=== PATIENT | male | born 2000 | race Hispanic/Latino ===

== ENCOUNTER 2022-03-12 22:24 | Emergency (ER) | payer SELFPAY ==
[2022-03-13] MEDS ORDERED: NA CHLORIDE 0.9% 1,000 ML ONE (00:04)
[2022-03-13 00:07] LABS: Absolute Lymphocytes (CBC) 4.3 K/uL (0.7-4.9); Hematocrit 38.4 % (39.6-49.0); Lymphocytes % 30.6 % (15.3-44.8); MCV 88.2 fL (80-100); MPV 10.2 fL (7.6-11.3); RBC Red Blood Cell Count 4.35 M/uL (4.33-5.43)
[2022-03-13 00:11] LABS: Protime INR 0.98
--- NOTE | 2022-03-13 00:24 | EDPHYS ---
Physician Documentation [facility] Name: Abdullahi Giron Age: 21 yrs Sex: Male : 2000 Arrival Date: 03/12/2022 Time: 22:28 Bed 18 Private MD: ED Physician Sergey Jasso HPI: 03/13 00:09 This 21 yrs old Male presents to ER via EMS with complaints of Suicidal yecenia Ideation. 00:09 The patient presents to the emergency department with depression, psychosis, suicide yecenia ideation, but the patient has no formulated plan. Onset: The symptoms/episode began/occurred 3 day(s) ago. Past psychiatric history: Prior diagnosis: bipolar disorder, depression. Associated signs and symptoms: Pertinent positives; paranoia, suicide ideation. Severity of symptoms: At their worst the symptoms were mild in the emergency department the symptoms are unchanged. The patient has experienced similar episodes in the past, multiple times. Historical: - Allergies: 03/12 22:41 No Known Allergies; ke1 - PMHx: 22:41 None; ke1 - PSHx: 22:41 None; ke1 - Immunization history:: Client reports having NOT received the Covid vaccine. - Social history:: Smoking status: Patient reports the use of cigarette tobacco products, smokes one pack cigarettes per day. ROS: 03/13 00:15 Constitutional: Negative for fever, chills, and weight loss, Eyes: Negative for injury, yecenia pain, redness, and discharge, ENT: Negative for injury, pain, and discharge, Neck: Negative for injury, pain, and swelling, Cardiovascular: Negative for chest pain, palpitations, and edema, Respiratory: Negative for shortness of breath, cough, wheezing, and pleuritic chest pain, Abdomen/GI: Negative for abdominal pain, nausea, vomiting, diarrhea, and constipation, Back: Negative for injury and pain, : Negative for injury, bleeding, discharge, and swelling, MS/Extremity: Negative for injury and deformity, Skin: Negative for injury, rash, and discoloration, Allergy/Immunology: Negative for hives, rash, and allergies, Endocrine: Negative for neck swelling, polydipsia, polyuria, polyphagia, and marked weight changes, Hematologic/Lymphatic: Negative for swollen nodes, abnormal bleeding, and unusual bruising. Psych: Positive for depression, auditory hallucinations, suicidal ideation. Exam: 00:15 Constitutional: This is a well developed, well nourished patient who is awake, alert, yecenia and in no acute distress. Head/Face: Normocephalic, atraumatic. Eyes: Pupils equal round and reactive to light, extra-ocular motions intact. Lids and lashes normal. Conjunctiva and sclera are non-icteric and not injected. Cornea within normal limits. Periorbital areas with no swelling, redness, or edema. ENT: Nares patent. No nasal discharge, no septal abnormalities noted. Tympanic membranes are normal and external auditory canals are clear. Oropharynx with no redness, swelling, or masses, exudates, or evidence of obstruction, uvula midline. Mucous membranes moist. Neck: Trachea midline, no thyromegaly or masses palpated, and no cervical lymphadenopathy. Supple, full range of motion without nuchal rigidity, or vertebral point tenderness. No Meningismus. Chest/axilla: Normal chest wall appearance and motion. Nontender with no deformity. No lesions are appreciated. Cardiovascular: Regular rate and rhythm with a normal S1 and S2. No gallops, murmurs, or rubs. Normal PMI, no JVD. No pulse deficits. Respiratory: Lungs have equal breath sounds bilaterally, clear to auscultation and percussion. No rales, rhonchi or wheezes noted. No increased work of breathing, no retractions or nasal flaring. Abdomen/GI: Soft, non-tender, with normal bowel sounds. No distension or tympany. No guarding or rebound. No evidence of tenderness throughout. Back: No spinal tenderness. No costovertebral tenderness. Full range of motion. Male : Normal genitalia with no discharge or lesions. Skin: Warm, dry with normal turgor. Normal color with no rashes, no lesions, and no evidence of cellulitis. MS/ Extremity: Pulses equal, no cyanosis. Neurovascular intact. Full, normal range of motion. Neuro: Awake and alert, GCS 15, oriented to person, place, time, and situation. Cranial nerves II-XII grossly intact. Motor strength 5/5 in all extremities. Sensory grossly intact. Cerebellar exam normal. Normal gait. Psych: Awake, alert, with orientation to person, place and time. Behavior, mood, and affect are within normal limits. 00:19 ECG was reviewed by the Attending Physician. [facility] Vital Signs: 03/12 22:38 BP 116 / 74; Pulse 82; Resp 17; Temp 98(O); Pulse Ox 100% on R/A; Weight 83.91 kg; ke1 Height 6 ft. 2 in. (187.96 cm); Pain 0/10; 03/13 12:15 BP 107 / 61; Pulse 67; Resp 18; Temp 97.8(O); Pulse Ox 98% on R/A; Pain 0/10; tw2 03/14 06:13 BP 122 / 61; Pulse 79; Resp 16; Temp 97.7(TE); Pulse Ox 100% on R/A; ll3 08:15 BP 142 / 79; Pulse 98; Resp 16; Temp 98; Pulse Ox 96% ; Pain 0/10; db 09:30 BP 122 / 78; Pulse 88; Resp 16; Temp 98; Pulse Ox 98% on R/A; Pain 0/10; db 03/12 22:38 Body Mass Index 23.75 (83.91 kg, 187.96 cm) ke1 [place] Coma Score: 03/13 00:20 Eye Response: spontaneous(4). Verbal Response: oriented(5). Motor Response: obeys [facility] commands(6). Total: 15. 03/14 08:15 Eye Response: spontaneous(4). Verbal Response: oriented(5). Motor Response: obeys db commands(6). Total: 15. MDM: 03/12 22:33 Patient medically screened. [facility] 03/13 00:20 Differential diagnosis: acute psychotic break, depression, hyponatremia. Data reviewed: [facility] vital signs, nurses notes, lab test result(s), EKG, radiologic studies, CT scan. Data interpreted: cardiac monitor technician: rate is 82 beats/min, rhythm is regular, Pulse oximetry: on room air is 100 %. Test interpretation: by ED physician or midlevel provider: ECG, plain radiologic studies. Counseling: I had a detailed discussion with the patient and/or guardian regarding: the historical points, exam findings, and any diagnostic results supporting the discharge/admit diagnosis, lab results, radiology results, the need for outpatient follow up, the need to transfer to another facility, for higher level of care, [facility] does not immediately have the required specialist. 03/12 22:33 Order name: Acetaminophen; Complete Time: 01:37 yecenia 03/12 22:33 Order name: Basic Metabolic Panel; Complete Time: 01:37 yecenia 03/12 22:33 Order name: CBC with Diff; Complete Time: 01:37 yecenia 03/12 22:33 Order name: ETOH Level; Complete Time: 01:37 [facility] 03/12 22:33 Order name: Hepatic Function; Complete Time: 01:37 yec[place] 03/12 22:33 Order name: PT-INR; Complete Time: 01:37 [facility] 03/12 22:33 Order name: Ptt, Activated; Complete Time: 01:37 [facility] 03/12 22:33 Order name: Salicylate; Complete Time: 01:37 [facility] 03/12 22:33 Order name: Urine Drug Screen; Complete Time: 03:48 [facility] 03/13 00:08 Order name: CT Head Brain wo Cont [facility] 03/13 01:38 Order name: CBC with Diff: REPEAT SP BOLUS; Complete Time: 03:48 [facility] 03/13 03:55 Order name: Urine Dipstick-Ancillary; Complete Time: 22:06 EDMO 03/13 04:58 Order name: SARS-COV-2 Antigen Rapid; Complete Time: 22:06 03/12 22:33 Order name: EKG; Complete Time: 22:34 [facility] 03/12 22:33 Order name: EKG - Nurse/Tech; Complete Time: 01:13 [facility] 03/12 22:33 Order name: IV Saline Lock; Complete Time: 00:06 [facility] 03/12 22:33 Order name: Labs collected and sent; Complete Time: 23:59 [facility] 03/12 22:33 Order name: Suicide Precautions; Complete Time: 00:06 [facility] 03/12 22:33 Order name: Suicide Screening ([place]); Complete Time: 00:06 [facility] 03/12 22:33 Order name: Urine Dipstick-Ancillary (obtain specimen); Complete Time: 01:13 yecenia 03/13 06:36 Order name: Diet Finger Food; Complete Time: 06:37 ke1 03/13 11:07 Order name: Diet Finger Food; Complete Time: 11:08 bd 03/13 15:26 Order name: Diet Finger Food; Complete Time: 15:26 bd 03/14 06:15 Order name: Diet Finger Food; Complete Time: 06:15 ll3 EC:19 Rate is 76 beats/min. Rhythm is regular. QRS [place] is Normal. RI interval is normal. QRS yecenia interval is normal. QT interval is normal. No Q waves. T waves are Normal. No ST changes noted. Clinical impression: Normal ECG and No evidence of ischemia. Interpreted by me. Reviewed by me. Administered Medications: 00:15 Drug: NS 0.9% 1000 ml Route: IV; Rate: 1 bolus; Site: right antecubital; [facility] 03/14 07:00 Follow up: Response: No adverse reaction; IV Status: Completed infusion; IV Intake: db 1000ml 03/13 01:28 Drug: Tylenol 1000 mg Route: PO; [facility] 03/14 07:00 Follow up: Response: No adverse reaction db 03/13 01:29 Drug: SEROquel (QUEtiapine) 50 mg Route: PO; [facility] 03/14 07:00 Follow up: Response: No adverse reaction db Disposition Summary: 03/13/22 00:23 Transfer Ordered Transfer Location: Psych Facility yecenia Reason: Higher level of care yecenia Condition: Stable yecenia Problem: new yecenia Symptoms: have improved yecenia Accepting Physician: TO PSYCH(03/14/22 10:05) ss Diagnosis - Bipolar disorder, unspecified yecenia - Suicidal ideations yecenia - Insomnia yecenia - Visual hallucinations yecenia - Auditory hallucinations yecenia Forms: - Medication Reconciliation Form yecenia - SBAR form yecenia Signatures: Dispatcher [employer] EDSergey Barth MD MD cha Smirch, Shelby, RN RN ss Víctor Hale, RAMSEY [id number] Vivian Lamar RN RN ke1 Meli Louis PA-C PASharla sb4 Rachael Whelan RN db Corrections: (The following items were deleted from the chart) 03/13 00:25 00:23 TO PSYCH yecenia yecenia 03/14 10:05 03/13 00:25 TO PSYCH yecenia ss
--- NOTE | 2022-03-13 00:24 | ER ---
Nurse's Notes [facility] Name: Abdullahi Giron Age: 21 yrs Sex: Male : 2000 Arrival Date: 03/12/2022 Time: 22:28 Bed 18 Private MD: Diagnosis: Bipolar disorder, unspecified;Suicidal ideations;Insomnia;Visual hallucinations;Auditory hallucinations Presentation: 03/12 22:38 Chief complaint: EMS states: Toned out by hotel because Patient got in hotel not ke1 knowing where he was going stating " this is not a real world", patient has visual and auditory hallucinations. Coronavirus screen: Vaccine status: Patient reports being unvaccinated. Ebola Screen: No symptoms or risks identified at this time. Initial Sepsis Screen: Does the patient meet any 2 criteria? No. Patient's initial sepsis screen is negative. Does the patient have a suspected source of infection? No. Patient's initial sepsis screen is negative. Risk Assessment: Do you want to hurt yourself or someone else? Patient reports desire/thoughts of hurting themselves or someone else. Provider notified. Onset of symptoms was March 12, 2022 at 21:00. 22:38 Method Of Arrival: EMS: [facility] ke1 22:38 Acuity: BLAYNE 3 ke1 Triage Assessment: 22:43 General: Appears in no apparent distress. Behavior is calm, cooperative. Pain: Denies ke1 pain. Neuro: Trevino Agitation-Sedation Scale (RASS): 0 - Alert and Calm Level of Consciousness is awake, alert, Oriented to person, place, time, situation. Historical: - Allergies: 22:41 No Known Allergies; ke1 - PMHx: 22:41 None; ke1 - PSHx: 22:41 None; ke1 - Immunization history:: Client reports having NOT received the Covid vaccine. - Social history:: Smoking status: Patient reports the use of cigarette tobacco products, smokes one pack cigarettes per day. Screenin:40 Abuse screen: Denies threats or abuse. Nutritional screening: No deficits noted. ke1 Tuberculosis screening: No symptoms or risk factors identified. Fall Risk None identified. Assessment: 03/13 07:05 Reassessment: Patient appears in no apparent distress at this time. Patient and/or tw2 family updated on plan of care and expected duration. Pain level reassessed. Patient is alert, oriented x 3, equal unlabored respirations, skin warm/dry/pink. 09:05 Reassessment: Patient appears in no apparent distress at this time. Patient and/or tw2 family updated on plan of care and expected duration. Pain level reassessed. Patient is alert, oriented x 3, equal unlabored respirations, skin warm/dry/pink. 10:15 Reassessment: Patient and/or family updated on plan of care and expected duration. Pain tw2 level reassessed. Patient is alert, oriented x 3, equal unlabored respirations, skin warm/dry/pink. sitter at bedside at this time and throughout shift. 11:05 Reassessment: Patient appears in no apparent distress at this time. Patient and/or tw2 family updated on plan of care and expected duration. Pain level reassessed. Patient is alert, oriented x 3, equal unlabored respirations, skin warm/dry/pink. 13:05 Reassessment: Patient appears in no apparent distress at this time. Patient and/or tw2 family updated on plan of care and expected duration. Pain level reassessed. Patient is alert, oriented x 3, equal unlabored respirations, skin warm/dry/pink. 15:05 Reassessment: Patient appears in no apparent distress at this time. Patient and/or tw2 family updated on plan of care and expected duration. Pain level reassessed. Patient is alert, oriented x 3, equal unlabored respirations, skin warm/dry/pink. 17:05 Reassessment: Patient appears in no apparent distress at this time. Patient and/or tw2 family updated on plan of care and expected duration. Pain level reassessed. Patient is alert, oriented x 3, equal unlabored respirations, skin warm/dry/pink. 18:59 Reassessment: Patient appears in no apparent distress at this time. Patient and/or tw2 family updated on plan of care and expected duration. Pain level reassessed. Patient is alert, oriented x 3, equal unlabored respirations, skin warm/dry/pink. 19:07 Reassessment: Patient laying in bed on left side resting comfortably, no complaints at vc1 this time. 03/14 07:14 Reassessment: Patient appears in no apparent distress at this time. No changes from db previously documented assessment. Patient and/or family updated on plan of care and expected duration. Pain level reassessed. Patient is alert, oriented x 3, equal unlabored respirations, skin warm/dry/pink. Patient denies pain at this time. General: Appears in no apparent distress. comfortable, Behavior is calm, cooperative, appropriate for age, quiet. Pain: Denies pain. Neuro: No deficits noted. Level of Consciousness is awake, alert, obeys commands, Oriented to person, place, time, situation, Appropriate for age Speech is normal, Facial symmetry appears normal. Cardiovascular: No deficits noted. Respiratory: No deficits noted. Airway is patent Respiratory effort is even, unlabored, Respiratory pattern is regular, symmetrical. GI: No signs and/or symptoms were reported involving the gastrointestinal system. : No deficits noted. EENT: No deficits noted. Derm: No deficits noted. No signs and/or symptoms reported regarding the dermatologic system. Musculoskeletal: No deficits noted. No signs and/or symptoms reported regarding the musculoskeletal system. 08:51 Reassessment: Patient appears in no apparent distress at this time. Patient and/or db family updated on plan of care and expected duration. Pain level reassessed. Patient is alert, oriented x 3, equal unlabored respirations, skin warm/dry/pink. patient eating meal served Patient states feeling better. 09:25 Reassessment: Patient appears in no apparent distress at this time. No changes from db previously documented assessment. Patient is alert, oriented x 3, equal unlabored respirations, skin warm/dry/pink. Patient signed AMA form. Notified Dr. Gonzalez patient states feels better and wants to go home. Patient states feeling better. Patient states symptoms have improved. Psych: 03/12 22:40 [place] Suicide Severity Screening: In the past month, have you wished you were ke1 or wished you could go to sleep and not wake up? Patient responds "yes." "In the past month, have you actually had any thoughts of killing yourself?" Patient responds "yes." "In your lifetime, have you ever done anything, started to do anything, or prepared to do anything to end your life?" Patient responds "yes." Patient reports suicidal intent within 3 past months. Subjective: Hallucinations are auditory, visual. Objective: Affect is flat. Interventions: Removed personal items and placed in bag. Patient placed in hospital gown. Searched person for dangerous items. Belonging list filled out. Safety Checks: Personal items have been removed. Pt has been placed in a hallway bed/chair. No visitors are present at this time. Pt denies substance abuse. Commitment: Patient will be a voluntary commitment. 03/14 07:50 [place] Suicide Severity Screening: In the past month, have you wished you were db or wished you could go to sleep and not wake up? Patient responds "No." "In the past month, have you actually had any thoughts of killing yourself?" Patient responds "no." "In your lifetime, have you ever done anything, started to do anything, or prepared to do anything to end your life?" Patient responds "yes." Patient reports suicidal intent within 3 past months. Patient calm in no apparent distress no complaints. Patient denies wanting to hurt self. States feels better and would like to go. Subjective: Hallucinations are auditory, visual, patient mumbling to himself. Objective: Patient is cooperative, Speech is normal, Affect is flat. Interventions: Removed personal items and placed in bag. Patient placed in hospital gown. Safety Checks: Personal items have been removed. Pt has been placed in a hallway bed/chair. No visitors are present at this time. Pt denies substance abuse. Vital Signs: 03/12 22:38 BP 116 / 74; Pulse 82; Resp 17; Temp 98(O); Pulse Ox 100% on R/A; Weight 83.91 kg; ke1 Height 6 ft. 2 in. (187.96 cm); Pain 0/10; 03/13 12:15 BP 107 / 61; Pulse 67; Resp 18; Temp 97.8(O); Pulse Ox 98% on R/A; Pain 0/10; tw2 03/14 06:13 BP 122 / 61; Pulse 79; Resp 16; Temp 97.7(TE); Pulse Ox 100% on R/A; ll3 08:15 BP 142 / 79; Pulse 98; Resp 16; Temp 98; Pulse Ox 96% ; Pain 0/10; db 09:30 BP 122 / 78; Pulse 88; Resp 16; Temp 98; Pulse Ox 98% on R/A; Pain 0/10; db 03/12 22:38 Body Mass Index 23.75 (83.91 kg, 187.96 cm) ke1 [place] Coma Score: 03/13 00:20 Eye Response: spontaneous(4). Verbal Response: oriented(5). Motor Response: obeys yecenia commands(6). Total: 15. 03/14 08:15 Eye Response: spontaneous(4). Verbal Response: oriented(5). Motor Response: obeys db commands(6). Total: 15. ED Course: 03/12 22:28 Patient arrived in ED. wm 22:33 Sergey Jasso MD is Attending Physician. yecenia 22:38 Vivian Lamar, KAMLESH is Primary Nurse. ke1 22:40 Arm band placed on left wrist. ke1 22:40 Bed in low position. Call light in reach. Side rails up X 1. Side rails up X2. ke1 22:41 Triage completed. ke1 23:58 Acetaminophen Sent. ke1 23:59 Basic Metabolic Panel Sent. ke1 23:59 CBC with Diff Sent. ke1 23:59 ETOH Level Sent. ke1 23:59 Hepatic Function Sent. ke1 23:59 PT-INR Sent. ke1 23:59 Ptt, Activated Sent. ke1 23:59 Salicylate Sent. ke1 23:59 Inserted saline lock: 20 gauge in right antecubital area, using aseptic technique. ke1 03/13 00:41 CT Head Brain wo Cont In Process Unspecified. EDMS 01:13 Urine Drug Screen Sent. mm9 03:33 Faxed Pt's chart to the Psych facilities. wm 04:58 Contacted [facility] to have Pt screened, spoke with Ross. wm 05:16 SARS-COV-2 Antigen Rapid Sent. ke1 05:54 Edward with [facility] called to say he would be ready to screen Pt via virtual in 10 wm mins...Emailed Edward the Pt's chart. 06:06 [facility] called to have Covid result faxed. wm 07:05 Safety Checks: Sitter not present at this time due to or because no sitter available, tw2 charge nurse KAMLESH Rodriguez aware. 07:18 Primary Nurse role handed off by Vivian Lamar RN tw2 07:18 Susan Tubbs RN is Primary Nurse. tw2 10:15 Safety Checks: Sitter present at this time. sitter KAMLESH Willis as sitter and will remain tw2 throughout shift. 20:00 No apparent distress. Resting quietly. ll3 22:00 Resting quietly. ll3 22:12 Refaxed current chart to all Psych facilities. wm 03/14 00:00 Appears to be sleeping. ll3 02:00 Appears to be sleeping. ll3 04:00 Appears to be sleeping. ll3 06:11 Resting quietly. ll3 07:00 Warm blanket given. Patient is placed in psych hold. db 09:26 No provider procedures requiring assistance completed. db 09:46 IV discontinued, intact, bleeding controlled, No redness/swelling at site. db Administered Medications: 03/13 00:15 Drug: NS 0.9% 1000 ml Route: IV; Rate: 1 bolus; Site: right antecubital; ke1 03/14 07:00 Follow up: Response: No adverse reaction; IV Status: Completed infusion; IV Intake: db 1000ml 03/13 01:28 Drug: Tylenol 1000 mg Route: PO; ke1 03/14 07:00 Follow up: Response: No adverse reaction db 03/13 01:29 Drug: SEROquel (QUEtiapine) 50 mg Route: PO; ke1 03/14 07:00 Follow up: Response: No adverse reaction db Medication: 03/13 07:46 VIS not applicable for this client. tw2 Intake: 03/14 07:00 IV: 1000ml; Total: 1000ml. db Outcome: 03/13 00:23 ER care complete, transfer ordered by . yecenia 03/14 09:45 AMA Other patient left AMA with family. db Condition: stable Instructed on need to return if has thoughts of wanting to hurt self. patient states he will 10:05 Patient left the ED. ss Signatures: Dispatcher [employer] EDFL Sergey Jasso MD MD cha Smirch, Shelby, RN RN ss Susan Tubbs RN RN tw2 Corie Celis Yury Kaufman RN RN ll3 Velma Wisdom RN RN 1 Vivian Lamar RN RN ke1 Rachael Whelan RN RN Gloria Haddad mm9 Corrections: (The following items were deleted from the chart) 09:48 07:50 [place] Suicide Severity Screening: In the past month, have you wished you were db or wished you could go to sleep and not wake up? Patient responds "yes." Based off the client's responses additional C-SSRS screening is required. "In the past month, have you actually had any thoughts of killing yourself?" Patient responds "yes." Based off the client's response additional [place] suicide severity screening questions to be further documented on paper forms. "In your lifetime, have you ever done anything, started to do anything, or prepared to do anything to end your life?" Patient responds "yes." Patient reports suicidal intent within 3 past months. Patient calm in no apparent distress no complaints db
[2022-03-13 00:28] LABS: ALT/SGPT 19 U/L (12-78); AST/SGOT 10 U/L (15-37); Albumin 3.6 g/dL (3.4-5.0); Alkaline Phosphatase 88 U/L (45-117); BUN Blood Urea Nitrogen 19 mg/dL (7-18); Bicarbonate 31 mmol/L (21-32); Bilirubin Direct < 0.1 mg/dL (0-0.2); Bilirubin Total 0.2 mg/dL (0.2-1.0); Glomerular Filtration Rate 115 ml/min (=/>90); Glucose Level 82 mg/dL (74-106); Potassium 3.9 mmol/L (3.5-5.1); Sodium Level 138 mmol/L (136-145)
[2022-03-13] MEDS ORDERED: ACETAMINOPHEN 500 MG TAB ONE (00:54)
[2022-03-13] MEDS ORDERED: QUETIAPINE 25 MG TAB ONE (01:00)
[2022-03-13 01:46] LABS: Barbiturates NEGATIVE (NEGATIVE); Benzodiazepines NEGATIVE (NEGATIVE); Cocaine NEGATIVE (NEGATIVE); METHAMPHETAM NEGATIVE (NEGATIVE); Methadone NEGATIVE (NEGATIVE); Opiates NEGATIVE (NEGATIVE); Phencyclidine NEGATIVE (NEGATIVE); THC Cannibis NEGATIVE (NEGATIVE)
[2022-03-13 02:24] LABS: Absolute Lymphocytes (CBC) 4.3 K/uL (0.7-4.9); Hematocrit 36.8 % (39.6-49.0); Lymphocytes % 33.6 % (15.3-44.8); MCV 89.8 fL (80-100)
[2022-03-13 03:55] LABS: Urine Blood Negative (Negative); Urine Glucose Negative (Negative); Urine Protein 1+ (Negative); Urine Specific Gravity 1.025 (1.005-1.030)
[2022-03-13 05:47] LABS: SARS-CoV-2 Antigen Rapid Res Negative (Negative)
--- NOTE | 2022-03-13 18:37 | EKG ---
Test Date: 2022-03-13 Test Time: 00:17:26 Bingo Checker: FLY MEASUREMENT RESULTS: Intervals: Rate: 76 AL: 146 QRSD: 82 QT: 372 QTc: 418 [place]: P: 67 AL: 146 QRS: 77 T: 67 INTERPRETIVE STATEMENTS: Normal sinus rhythm with sinus arrhythmia Early repolarization Normal ECG No previous ECG available for comparison Electronically Signed On 03-13-22 18:35:52 CDT by Malik Bland
--- NOTE | 2022-03-14 08:29 | RAD REPORT ---
EXAM DESCRIPTION: Head Brain Wo Cont CLINICAL HISTORY: 21 years Male Headache, tension-type COMPARISON: None TECHNIQUE: Contiguous axial images of the brain were obtained without the administration of intraven ous contrast.This exam was performed according to our departmental dose-optimization program which in cludes use of Automated Exposure Control, adjustment of the mA and/or kV according to patient size an d/or use of iterative reconstruction technique. DLP: 946 mGy*cm FINDINGS: Brain: No acute intracranial hemorrhage. No extra-axial collection. No mass effect or yunior iation. Ventricles: Within normal limits in size. Globes and orbits: No acute abnormality. Bones: No acute osseous finding Paranasal sinuses: Paranasal sinuses are clear. Mastoid air cells: Well pneumatized. Soft tissues: Within normal limits IMPRESSION: No acute intracranial abnormality. Electronically signed by: Jose Enrique Ghosh DO 03/13/2022 12:51 AM CDT Due to temporary technical issues with the PACS/Fluency reporting system, reports are being signed by the in house radiologists without review as a courtesy to insure prompt reporting. The interpreting radiologist is fully responsible for the content of the report
[2022-03-14 10:33] VITALS: TEMP 98
[2022-03-14 10:34] VITALS: BP 122/78; O2SAT 98
== END 2022-03-14 10:05 ==
LOC: ER 22:24
DX: R45.851 Suicidal ideations (principal); G47.00 Insomnia, unspecified; F31.9 Bipolar disorder, unspecified; F17.210 Nicotine dependence, cigarettes, uncomplicated; Z20.822 Contact with and (suspected) exposure to COVID-19
CPT/HCPCS: 36415; 70450; 80048; 80076; 80320; 80329; 85025; 85610; 85730; 93005; 96360; 96361; 99285